=== PATIENT | female | born 1995 | race Caucasian/White ===

== ENCOUNTER 2023-01-26 11:42 | Emergency (ER) | payer MEDICAID, SELFPAY ==
[2023-01-26 10:00] LABS: SARS-CoV-2 NAA Rapid Test DETECTED (NotDetected)
[2023-01-26 10:26] LABS: #Eosinphils 0.1 10x3/uL (0.0-0.5); #Monocytes 0.8 10x3/uL (0.0-1.1); #Neutrophils 6.8 10x3/uL (1.5-8.4); %Basophils 0.2 % (0.0-2.0); %Eosinophils 1.2 % (0.0-6.0); %Lymphocytes 9.3 % (18.0-47.0); %Monocytes 9.1 % (0.0-10.0); %Neutrophils 79.4 % (40.0-75.0); Hemoglobin 9.3 g/dL (12.0-15.5); Mean Corpuscular HGB CONC 31.3 g/dL (32.0-36.0); Mean Corpuscular Hemoglobin 24.7 pg (27.0-33.0); Mean Corpuscular Volume 78.8 fl (81.6-98.3); Mean Platelet Volume 10.8 fl (7.4-10.4); Platelet Count 250 10x3/uL (150-450); RBC Distribution Width 15.5 % (11.5-14.5); Red Blood Cell (RBC) Count 3.77 10x6/uL (3.90-5.03); White Blood Cell (WBC) Count 8.6 10x3/uL (3.5-10.5)
[2023-01-26 10:44] LABS: Anion Gap 14 mmol/L (10-20); BUN (Urea Nitrogen) 6 mg/dL (7.0-18.7); Calc. Creatinine Clearance 0 mL/min (70-130); Carbon Dioxide 18 mmol/L (22-29); Chloride 107 mmol/L (98-107); Potassium 3.6 mmol/L (3.5-5.1); Sodium 135 mmol/L (136-145)
[2023-01-26 10:45] LABS: ALT (SGPT) 8 U/L (8-55); AST (SGOT) 13 U/L (5-34); Albumin 3.5 g/dL (3.5-5.0); Alkaline Phosphatase 97 U/L (40-110); Bilirubin, Total 0.2 mg/dL (0.2-1.2); CRP (Inflammatory) 2.23 mg/dL (= or < 0.5); Calcium 8.6 mg/dL (7.8-10.44); Estimated GFR 130; Globulin 2.9 g/dL (2.4-3.5); Glucose 91 mg/dL (70-105); Protein, Total 6.4 g/dL (6.0-8.3)
[~2023-01-26 11:42] MED LIST: Iopamidol 370 76% 100 ML VIAL ONE
== END 2023-01-26 14:05 | disposition home health service (06) ==
LOC: CSHLD/OP 11:42 → CSHERS 11:42 → CSHLD/OP 11:42 → EDSTATUS 11:43 → CSHLD/OP 14:05 → EDSTATUS 21:11
DX: U07.1 COVID-19 (principal)
CPT/HCPCS: 59025; 71275; 80053; 85025; 86140; 93005; 96360; 96361; 99281; Q9967

== ENCOUNTER 2023-02-23 06:50 | Inpatient (IN) | payer OTHER ==
[2023-02-23 07:31] VITALS: BMI 32.8
[2023-02-23] MEDS ORDERED: Bupivacaine 0.25% HCL 30 ML VIAL ONE (08:00)
[2023-02-23] MEDS ORDERED: hydrALAZINE 20 MG/ML VIAL SLOW IVP PRN ×3 (08:19→15:14)
[2023-02-23 09:41] LABS: #Eosinphils 0.1 10x3/uL (0.0-0.5); #Monocytes 0.7 10x3/uL (0.0-1.1); %Basophils 0.3 % (0.0-2.0); %Eosinophils 0.8 % (0.0-6.0); %Lymphocytes 16.1 % (18.0-47.0); %Monocytes 6.2 % (0.0-10.0); %Neutrophils 76.2 % (40.0-75.0); Hemoglobin 10.1 g/dL (12.0-15.5); Mean Corpuscular HGB CONC 31.4 g/dL (32.0-36.0); Mean Corpuscular Volume 76.5 fl (81.6-98.3); Mean Platelet Volume 10.8 fl (7.4-10.4); Platelet Count 254 10x3/uL (150-450); RBC Distribution Width 16.7 % (11.5-14.5); Red Blood Cell (RBC) Count 4.21 10x6/uL (3.90-5.03); White Blood Cell (WBC) Count 10.5 10x3/uL (3.5-10.5)
[2023-02-23] MEDS ORDERED: Acetaminophen 500 MG TAB PO PRN (10:07)
[2023-02-23] MEDS ORDERED: Lidocaine 1% (PF) 30 ML VIAL SC PRN (10:07)
[2023-02-23] MEDS ORDERED: Ondansetron PF 4 MG/2 ML Vial IVP PRN ×2 (10:07→15:14)
[2023-02-23] MEDS ORDERED: Promethazine HCl 25 MG/ML VIAL IM PRN ×2 (10:07→15:14)
[2023-02-23] MEDS ORDERED: NS w/ Oxytocin 30 units 500 ML IV SCH ×2 (10:15→15:14)
[2023-02-23] MEDS ORDERED: Fentanyl 2 mcg/Bup 0.1% Cadd 100 ML ONE (10:34)
[2023-02-23 11:10] LABS: HBSAg Index 0.14 S/CO (0-0.99); Hep B Surf Ag - L&D Non-Reactive S/CO (NonReactive)
[2023-02-23 11:11] LABS: Syphilis Antibody Nonreactive (Nonreactive); Syphilis Antibody Index 0.05 S/CO (<1.00 Non-Reactive)
[2023-02-23] MEDS ORDERED: Misoprostol 200 MCG TAB VAG PRN (15:14)
[2023-02-23] MEDS ORDERED: Lanolin Ointment 7 GM TUBE TOP PRN (15:14)
[2023-02-23] MEDS ORDERED: Benzocaine-Menthol 82.5 ML CAN TOP PRN (15:14)
[2023-02-23] MEDS ORDERED: Methylergonovine 0.2 MG/ML VIAL IM PRN (15:14)
[2023-02-23] MEDS ORDERED: Bisacodyl 10 MG SUPP PR PRN (15:14)
[2023-02-23] MEDS ORDERED: Boostrix 0.5 ML (Tdap) VIAL (>/=7 yrs of age) IM ONE (15:14)
[2023-02-23] MEDS ORDERED: diphenhydrAMINE 25 MG CAP PO PRN (15:14)
[2023-02-23] MEDS ORDERED: Milk Of Magnesia 30 ML UDCUP PO PRN (15:14)
[2023-02-23] MEDS: Ferrous Sulfate 325 MG TAB PO SCH (16:02)
[2023-02-23] MEDS: Ibuprofen 800 MG TAB PO SCH (17:48)
[2023-02-23] MEDS: Docusate 100 MG CAP PO SCH (21:07)
[2023-02-23] MEDS: metroNIDAZOLE 500 MG TAB PO SCH (21:08)
[2023-02-23] MEDS ORDERED: Cepastat Lozenges 1 LOZ PO PRN (21:15)
[2023-02-24] MEDS: Ibuprofen 800 MG TAB PO SCH ×3 (01:30→21:37)
[2023-02-24] MEDS: Ferrous Sulfate 325 MG TAB PO SCH ×2 (09:17→17:45)
[2023-02-24] MEDS: Prenatal Vitamin 1 TAB PO SCH (09:21)
[2023-02-24] MEDS: metroNIDAZOLE 500 MG TAB PO SCH ×2 (09:21→21:37)
[2023-02-24] MEDS: Docusate 100 MG CAP PO SCH ×2 (09:21→21:37)
[2023-02-25 04:53] VITALS: TEMP 98.5
[2023-02-25] MEDS: Ibuprofen 800 MG TAB PO SCH (04:53)
[2023-02-25] MEDS: Ferrous Sulfate 325 MG TAB PO SCH ×2 (07:09→08:43)
[2023-02-25 08:02] VITALS: BP 90/50
[2023-02-25] MEDS: Prenatal Vitamin 1 TAB PO SCH (08:37)
[2023-02-25] MEDS: metroNIDAZOLE 500 MG TAB PO SCH (08:37)
[2023-02-25] MEDS: Docusate 100 MG CAP PO SCH (08:37)
== END 2023-02-25 13:00 | disposition home or self-care (01) | DRG 807 ==
LOC: CSHLD/OP 06:50 → CSHLD 10:48 → CSHPP 15:30
PROVIDERS: ADMIT Emergency Medicine; ATTEND Emergency Medicine
PROC: 10E0XZZ Delivery of Products of Conception, External Approach (ICD-10-PCS; principal; 2023-02-23)
PROC: 10907ZC Drainage of Amniotic Fluid, Therapeutic from Products of Conception, Via Natural or Artificial Opening (ICD-10-PCS; 2023-02-23)
DX: O77.0 Labor and delivery complicated by meconium in amniotic fluid (principal); Z37.0 Single live birth; Z3A.39 39 weeks gestation of pregnancy
CPT/HCPCS: 36415; 51702; 85025; 86780; 86850; 86900; 86901; 87340; 99285; J2590; S0020